=== PATIENT | male | born 1965 | race Two or more races ===

== ENCOUNTER → 2017-01-11 | Outpatient (CLI) | payer OTHER | END | disposition home or self-care (01) | LOC: EMPHLTH 10:36 | PROVIDERS: ATTEND Internal Medicine | DX: Z02.1 Encounter for pre-employment examination (principal); R76.11 Nonspecific reaction to tuberculin skin test without active tuberculosis | CPT/HCPCS: 86480; 86706; 86735; 86762; 86765; 86787 ==